=== PATIENT | female | born 1980 | race Asian ===

== ENCOUNTER 2022-08-10 21:33 | Emergency (ER) | payer BC ==
[~2022-08-10] VITALS: Ht 152.4 cm; Wt 53.5 kg
[2022-08-10 21:47] VITALS: BP_SYST 116
--- NOTE | 2022-08-10 21:51 | NUR ---
PATIENT TOOK PILL TODAY AT APROX 1510. STARTED VAGINALLY BLEEDING AT APROX 1700 AND HAS WENT THROUGH TEN HEAVY PADS IN THE PAST 4+HOURS. NO PAIN AT THIS TIME, JUST HEAVY BLEEDING.
[2022-08-10] MEDS ORDERED: NACL 0.9% 1,000 ML IV ONE ×2 (22:00)
--- NOTE | 2022-08-10 22:00 | NUR ---
PATIENT PLACED IN BED 7 AND HOOKED ONTO MONITORS. REPORT GIVEN TO FINN [place].
--- NOTE | 2022-08-10 22:10 | NUR ---
# 20 gauge angiocath placed to . Use of asceptic technique. Opsite placed over site. Blood return noted. Blood for lab drawn from site. Flushed with 10 cc of normal saline. No evidence of infiltration noted. Patient tolerated well. ALL BLOOD COLLECTED AND SENT WITH PROCESS IMPROVEMENT ENGINEER.
[2022-08-10 22:17] LABS: BASOPHILS # (AUTO) 0.1 K/uL (0.0-0.2); BASOPHILS % (AUTO) 0.4 % (0.0-2.0); EOSINOPHILS # (AUTO) 0.3 K/uL (0.0-0.4); EOSINOPHILS % (AUTO) 1.6 % (0.0-4.0); HEMATOCRIT 32.6 % (36-48); HEMOGLOBIN 10.8 g/dL (12.0-16.0); LYMPHOCYTES # (AUTO) 2.4 K/uL (1.0-5.5); LYMPHOCYTES % (AUTO) 15.3 % (20.5-51.5); MEAN CORPUSCULAR HEMOGLOBIN 27 pg (27-31); MEAN CORPUSCULAR HGB CONC 33 % (32-36); MEAN CORPUSCULAR VOLUME 82 fL (79.0-98.0); MONOCYTES # (AUTO) 0.8 K/uL (0.0-1.0); MONOCYTES % (AUTO) 5.2 % (1.7-9.3); NEUTROPHILS % (AUTO) 77.5 % (40.0-70.0); PLATELET COUNT (AUTO) 312 K/uL (130-430); RED BLOOD CELL COUNT(AUTO) 3.96 MIL/uL (4.2-6.2); RED CELL DISTRIBUTION WIDTH 15.2 % (9.0-15.0); WHITE BLOOD COUNT (AUTO) 15.5 K/uL (4.8-10.8)
[2022-08-10] MEDS ORDERED: TRANEXAMIC ACID 1,000 MG/10 ML VIAL IV ONE (22:30)
[2022-08-10] MEDS ORDERED: TRANEXAMIC ACID 1,000 MG/10 ML VIAL ONE (22:34)
[2022-08-10 22:55] LABS: CALCIUM 8.5 mg/dL (8.4-11.0); CREATININE 0.83 mg/dL (0.55-1.30); POTASSIUM 3.5 mmol/L (3.5-5.1)
[2022-08-10 22:56] LABS: INR 0.9 (0.8-1.2); PROTHROMBIN TIME 9.4 SECS (9.5-12.5)
[2022-08-10 23:01] LABS: ALBUMIN 3.1 g/dL (3.4-4.8); TOTAL BILIRUBIN 0.3 mg/dL (0.0-1.0)
--- NOTE | 2022-08-11 00:01 | NUR ---
RECIEVED PT FROM PREVIOUS NURSE FINN BRISENO
[2022-08-11 01:00] LABS: BILIRUBIN,URINE NEGATIVE (NEGATIVE); BLOOD, URINE 3+ (NEGATIVE); CLARITY/URINE CLOUDY (CLEAR); COLOR,URINE RED (YELLOW); GLUCOSE,URINE NEGATIVE (NEGATIVE); KETONES,URINE 1+ (NEGATIVE); LEUKOCYTE ESTERASE ,URINE TRACE (NEGATIVE); NITRITE, URINE POSITIVE (NEGATIVE); PH,URINE 5.5 (5.0-8.0); PROTEIN URINE 2+ (NEGATIVE)
--- NOTE | 2022-08-11 01:10 | NUR ---
patient resting comfortably in bed with side rails raised. Nad noted at this time.
[2022-08-11 01:33] LABS: RBC,URINE >100 /HPF (0-3); WBC,URINE 0-3 /HPF (0-3)
[2022-08-11 01:34] LABS: BACTERIA,URINE MANY /HPF (None Seen); MUCUS,URINE None Seen /LPF (None Seen)
--- NOTE | 2022-08-11 02:00 | NUR ---
Patient at US accompanied by RT.
[2022-08-11] MEDS ORDERED: cefTRIAXone 1 GM in D5W 50 ML IV ONE (03:00)
--- NOTE | 2022-08-11 03:05 | NUR ---
Patient resting quietly. No acute distress noted. Vital signs within normal range.
[2022-08-11] MEDS ORDERED: cefTRIAXone 1 GM VIAL ONE ×2 (03:07)
[2022-08-11] MEDS ORDERED: NAPR-686 PO (03:13)
[2022-08-11] MEDS ORDERED: CEPH250C PO (03:13)
--- NOTE | 2022-08-11 03:58 | NUR ---
Patient given written and verbal discharge instructions and verbalizes understanding. ER MD discussed with patient the results and treatment provided. Patient in stable condition. ID arm band removed. IV catheter removed intact and dressing applied, no active bleeding. Rx of keflex & naproxen given. Patient educated on pain management and to follow up with PMD. Pain Scale 0/10. Opportunity for questions provided and answered. Medication side effect fact sheet provided.
[2022-08-11 03:59] VITALS: BP_SYST 105
== END 2022-08-11 03:59 | disposition home or self-care (01) ==
LOC: SED 21:33
DX: O03.9 Complete or unspecified spontaneous abortion without complication (principal); N39.0 Urinary tract infection, site not specified; R42 Dizziness and giddiness; Z79.899 Other long term (current) drug therapy
CPT/HCPCS: 99284; 96361; 96375; 80053; 81000; 84702; 85025; 85610; 85730; 86886; 86900; 86901; 87086; 36415; 81025; 96365; 76801; 76817; J3490; J7030; J0696